=== PATIENT | female | born 1950 | race Caucasian/White ===

== ENCOUNTER 2021-08-31 18:33 | Emergency (ER) | payer MEDICARE, OTHER ==
[~2021-08-31] VITALS: Ht 167.6 cm; Wt 81.8 kg
[2021-08-31] MEDS ORDERED: acetaminophen 325mg tablet PO STA (18:45)
[2021-08-31 20:18] VITALS: BP 135/74
== END 2021-08-31 20:19 | disposition home or self-care (01) ==
LOC: ER 18:34
DX: S13.9XXA Sprain of joints and ligaments of unspecified parts of neck, initial encounter (principal); R51.9 Headache, unspecified; M54.9 Dorsalgia, unspecified; V89.2XXA Person injured in unspecified motor-vehicle accident, traffic, initial encounter; Z88.1 Allergy status to other antibiotic agents; Y93.89 Activity, other specified; Y92.89 Other specified places as the place of occurrence of the external cause; Y99.8 Other external cause status
CPT/HCPCS: 70450; 72125; 99284